=== PATIENT | female | born 1960 | race Caucasian/White ===

== ENCOUNTER 2020-07-30 12:52 | Emergency (ER) | payer BC, OTHER ==
[~2020-07-30] VITALS: Ht 165.1 cm; Wt 82.0 kg
[~2020-07-30 12:52] MED LIST: ALBU2.5V8 INH; LEVO500T8 PO; PRED20TA PO
[2020-07-30] MEDS ORDERED: CLINDAMYCIN 600MG PREMIX 50 ML IV ONE (13:45)
[2020-07-30] MEDS ORDERED: DEXAMETHASONE SOD PHOS 4 MG/ML VIAL IVP ONE (13:45)
--- NOTE | 2020-07-30 13:47 | ED.ADGEN ---
Past Medical History Past Medical History: Hypothyroid Past Surgical History: No Surgical History Smoking Status: Former Smoker Additional Information: QUIT 2014 Alcohol Use: Rarely Drug Use: None General Adult EDM: Chief Complaint: SORE THROAT HPI: HPI: Patient is a 60-year-old female who presents to the emergency room complaining of 8 days of sore throat. Patient states that 8 ago is ago she went to urgent care at that time was placed on doxycycline for presumed bacterial tonsillitis. She had a strep, influenza, Covid swab at that time that were all negative. She states that she felt like she had an allergic reaction to the doxycycline and she was switched to clindamycin. She states the next day she had shakes and thought this was from the clindamycin so she quit taking them. She was placed on steroids which did not seem to help. She states the pain has only gotten worse over time. She states that she is coughing up sputum. She has some shortness of breath. She is able to swallow and talk but it is painful. Review of Systems: Review of Systems: Complete ROS is negative unless otherwise documented in HPI Current Medications: Current Medications Medications (Trade) Dose Ordered Sig/Jami Start Time Stop Time Status Last Admin Dose Admin Benzocaine (Hurricaine One) 1 spray 1X ONCE 07/30/20 15:45 07/30/20 15:46 DC 07/30/20 15:20 1 SPRAY Clindamycin Phosphate 50 ml @ 100 mls/hr 1X ONCE 07/30/20 13:45 07/30/20 14:14 DC 07/30/20 14:20 100 MLS/HR Dexamethasone Sodium Phosphate (Decadron) 10 mg 1X ONCE 07/30/20 13:45 07/30/20 13:51 DC 07/30/20 14:19 10 MG Sodium Chloride 1,000 ml @ 1,000 mls/hr 1X ONCE 07/30/20 14:45 07/30/20 15:44 DC 07/30/20 14:58 1,000 MLS/HR Allergies: Allergies: Allergies Coded Allergies Type Severity Reaction Last Updated Verified Penicillins Allergy Severe "I CAN'T BREATHE" 07/20/15 Yes levofloxacin Adverse Reaction Mild JITTERY 07/20/15 Yes Physical Exam: PE: General: Awake, alert, NAD. Well Nourished, well hydrated. Cooperative HEENT: Atraumatic, EOMI, PERRL, airway patent, moist oral mucosa, bilateral mild tonsillar swelling with erythema and blisters, posterior pharynx appears normal, cervical lymphadenopathy Neck: Supple, trachea midline Respiratory: CTA bilaterally, normal effort, no wheezing/crackles CV: RRR, no murmur, cap refill <2 GI: Soft, nondistended, nontender, no masses MSK: No obvious deformities Skin: Warm, dry, intact Neuro: A&O x3, speech NL, sensory and motor grossly intact, no focal deficits Psych: Normal affect, normal mood, not suicidal or homicidal Current Patient Data: Labs: Laboratory Tests Test 07/30/20 13:30 07/30/20 13:39 White Blood Count 6.8 x10^3/uL (4.0-11.0) Red Blood Count 4.50 x10^6/uL (3.50-5.40) Hemoglobin 13.7 g/dL (12.0-15.5) Hematocrit 40.4 % (36.0-47.0) Mean Corpuscular Volume 90 fL (79-100) Mean Corpuscular Hemoglobin 31 pg (25-35) Mean Corpuscular Hemoglobin Concent 34 g/dL (31-37) Red Cell Distribution Width 13.5 % (11.5-14.5) Platelet Count 267 x10^3/uL (140-400) Neutrophils (%) (Auto) 60 % (31-73) Lymphocytes (%) (Auto) 25 % (24-48) Monocytes (%) (Auto) 11 % (0-9) H Eosinophils (%) (Auto) 3 % (0-3) Basophils (%) (Auto) 1 % (0-3) Neutrophils # (Auto) 4.1 x10^3/uL (1.8-7.7) Lymphocytes # (Auto) 1.7 x10^3/uL (1.0-4.8) Monocytes # (Auto) 0.8 x10^3/uL (0.0-1.1) Eosinophils # (Auto) 0.2 x10^3/uL (0.0-0.7) Basophils # (Auto) 0.0 x10^3/uL (0.0-0.2) Troponin I Quantitative < 0.017 ng/mL (0.000-0.055) Heterophil Agglutinins Negative (NEGATIVE) Sodium Level 141 mmol/L (136-145) Potassium Level 3.7 mmol/L (3.5-5.1) Chloride Level 101 mmol/L (98-107) Carbon Dioxide Level 26 mmol/L (21-32) Anion Gap 14 (6-14) Blood Urea Nitrogen 21 mg/dL (7-20) H Creatinine 1.0 mg/dL (0.6-1.0) Estimated GFR (Cockcroft-Gault) 56.7 BUN/Creatinine Ratio 21 (6-20) H Glucose Level 97 mg/dL (70-99) Calcium Level 9.0 mg/dL (8.5-10.1) Total Bilirubin 0.8 mg/dL (0.2-1.0) Aspartate Amino Transferase (AST) 38 U/L (15-37) H Alanine Aminotransferase (ALT) 49 U/L (14-59) Alkaline Phosphatase 81 U/L (46-116) Total Protein 7.9 g/dL (6.4-8.2) Albumin 3.5 g/dL (3.4-5.0) Albumin/Globulin Ratio 0.8 (1.0-1.7) L Laboratory Tests 07/30/20 13:30 Laboratory Tests 07/30/20 13:39 Vital Signs: Vital Signs Date Time Temp Pulse Resp B/P (MAP) Pulse Ox O2 Delivery O2 Flow Rate FiO2 07/30/20 12:58 97.6 105 16 122/76 (91) 95 Room Air 97.6 EKG: EKG: [] Heart Score: Risk Factors: Risk Factors: DM, Current or recent (<one month) smoker, HTN, HLP, family history of CAD, obesity. Risk Scores: Score 0 - 3: 2.5% MACE over next 6 weeks - Discharge Home Score 4 - 6: 20.3% MACE over next 6 weeks - Admit for Clinical Observation Score 7 - 10: 72.7% MACE over next 6 weeks - Early Invasive Strategies Radiology/Procedures: Radiology/Procedures: [] Course & Med Decision Making: Course & Med Decision Making Pertinent Labs and Imaging studies reviewed. (See chart for details) Patient is a 60-year-old female who presents to the emergency room with sore throat. She does appear to have erythema and blisters. CT scan was done which does not show any extension of the infection. White blood cell count is normal. Lab work is normal. This is likely a bacterial tonsillitis. We will place her on azithromycin and steroids. I recommended that she follows up with ENT. Patient's test results and vitals while in the ED were fully reviewed and discussed with the patient. Patient is stable and at this time does not need admission to the hospital. We have discussed strict return precautions and the importance of following up with their Primary Care Physician. Patient stated understanding and was given an opportunity to ask any questions. Patient is in agreement with plan. Dragon Disclaimer: Dragon Disclaimer: This electronic medical record was generated, in whole or in part, using a voice recognition dictation system. Departure Departure Impression: Primary Impression: Acute tonsillitis Disposition: 01 DC HOME SELF CARE/HOMELESS Condition: STABLE Referrals: MIRZA GARAY MD (PCP) Patient Instructions: Tonsillitis Scripts Methylprednisolone (MEDROL) 4 Mg Tab.ds.pk 1 PKG PO UD, #1 PKG Prov: JAY DEGROOT MD 07/30/20 Azithromycin (AZITHROMYCIN TABLET) 500 Mg Tablet 1 TAB PO DAILY for 14 Days, #14 TAB 0 Refills Prov: JAY DEGROOT MD 07/30/20 JAY DEGROOT MD Jul 30, 2020 13:47
[2020-07-30 13:51] LABS: BASO % 1 % (0-3); EOS # 0.2 x10^3/uL (0.0-0.7); EOS % 3 % (0-3); HEMATOCRIT 40.4 % (36.0-47.0); HEMOGLOBIN 13.7 g/dL (12.0-15.5); LYMPH # 1.7 x10^3/uL (1.0-4.8); LYMPH % 25 % (24-48); MEAN CORPUSCULAR HEMOGLOBIN 31 pg (25-35); MEAN CORPUSCULAR HGB CONC 34 g/dL (31-37); MEAN CORPUSCULAR VOLUME 90 fL (79-100); MONO # 0.8 x10^3/uL (0.0-1.1); MONO % 11 % (0-9); NEUT # 4.1 x10^3/uL (1.8-7.7); NEUT % 60 % (31-73); PLATELET COUNT 267 x10^3/uL (140-400); RED CELL DISTRIBUTION WIDTH 13.5 % (11.5-14.5); WHITE BLOOD COUNT 6.8 x10^3/uL (4.0-11.0)
[2020-07-30 14:00] LABS: GFR 56.7; POTASSIUM 3.7 mmol/L (3.5-5.1)
[2020-07-30 14:06] LABS: ALBUMIN 3.5 g/dL (3.4-5.0); ALBUMIN/GLOBULIN RATIO 0.8 (1.0-1.7); TOTAL BILIRUBIN 0.8 mg/dL (0.2-1.0); TOTAL PROTEIN 7.9 g/dL (6.4-8.2)
[2020-07-30 14:10] LABS: MONONUCLEOSIS PATIENT NEGATIVE (NEGATIVE)
--- NOTE | 2020-07-30 14:20 | RAD ---
PQRS Compliance Statement: One or more of the following individualized dose reduction techniques were utilized for this examination: 1. Automated exposure control 2. Adjustment of the mA and/or kV according to patient size 3. Use of iterative reconstruction technique Neck CT with contrast: 07/30/2020 Indication: Tonsillar swelling with ulcerations, green mucous. Technique: Multiple axial images were obtained through the neck without intravenous injection of contrast material. Comparison: None. Findings: The visualized brain parenchyma appears intact. The skull base is normal. The visualized paranasal sinuses and orbital contents are normal. The sella turcica and cavernous sinus regions appear intact. The mastoid air cells are normal. The fossa of Rosenmuller is normal. The parotid space contents and belt turner space contents appear intact. The parapharyngeal spaces are normal. The submandibular and sublingual space contents appear intact. The epiglottis, aryepiglottic folds, and piriform sinuses are normal. The vallecula appears normal. There is mild nodular thickening of the right true cord which is difficult to evaluate due to close apposition of the cords. The thyroid lobes appear intact. The carotid space contents are normal. There is no deep cervical chain adenopathy observed. The jugulodigastric regions appear intact.. Cervical lymph node measures approximately 10 mm (series 2, image 40). Left cervical lymph nodes measure up to 9.5 mm. The perivertebral space contents are normal. The supraclavicular regions appear intact. The visualized mediastinum is normal. The visualized lungs appear intact. Mild to moderate cervical spondylosis. Mild centrilobular pulmonary emphysema. Impression: There is mild nodular thickening of the right true cord with close apposition of the true cords, limiting evaluation. Requisition could be of benefit as clinically warranted. Evaluation is limited without intravenous contrast. No pharyngeal edema or peritonsillar abscess. No retropharyngeal effusion. No pathologically enlarged cervical lymph nodes are identified. Electronically signed by: Brenda Burkett MD (07/30/2020 2:18 PM) [facility]
[2020-07-30] MEDS ORDERED: IV NORMAL SALINE 1000ML BAG 1,000 ML IV ONE (14:45)
[2020-07-30] MEDS ORDERED: AZIT500T4 PO (15:31)
[2020-07-30] MEDS ORDERED: METH4TAB2 PO (15:31)
[2020-07-30] MEDS ORDERED: BENZOCAINE ONE 20% MUCOSAL SPRAY. MM (15:45)
[2020-07-30 16:43] VITALS: BP 124/78
== END 2020-07-30 16:43 | disposition home or self-care (01) ==
LOC: ER 12:52
DX: J03.90 Acute tonsillitis, unspecified (principal); E03.9 Hypothyroidism, unspecified; Z87.891 Personal history of nicotine dependence; Z88.0 Allergy status to penicillin; Z88.1 Allergy status to other antibiotic agents
CPT/HCPCS: 36415; 70490; 80053; 84484; 85025; 86308; 87040; 87070; 96361; 96365; 96375; 99285; J1100; J3490; J7030